=== PATIENT | female | born 1940 | race Caucasian/White ===

== ENCOUNTER 2022-04-28 13:17 | Observation (INO) | payer MEDICARE, OTHER, SELFPAY ==
[2022-04-28] VITALS (8 sets, daily range): BP systolic 160–179; BP diastolic 97–100; PULSE 80–117; RESP 16–27; TEMP 36–37; O2SAT 96–99; BMI 29.2; BMI 28.9
--- NOTE | 2022-04-28 13:36 | DI.CT.S_ITS ---
PROCEDURE: CT HEAD/BRAIN WO CON INDICATIONS: TIA symptoms TECHNIQUE: Noncontrast 4.5 mm thick angled axial sections acquired from the foramen magnum to the vertex, with coronal and sagittal reformats. For radiation dose reduction, the following was used: automated exposure control, adjustment of mA and/or kV according to patient size. COMPARISON: None. FINDINGS: Image quality: Excellent. CSF spaces: Basal cisterns are patent. No extra-axial fluid collections. The ventricles are symmetric in size and shape. Brain: No intracranial bleeds or masses. There is cerebral volume loss for age, with resultant ventricular and sulcal prominence. There are periventricular and deep white matter chronic small vessel ischemic changes. There is intracranial internal carotid artery atherosclerosis. Skull and face: Calvarium and visualized facial bones appear intact, without suspicious lesions. Sinuses: Visualized sinuses and mastoids are clear. IMPRESSION: No acute intracranial finding. Advanced global cerebral volume loss chronic microvascular ischemic changes. Dictated by: Richie Marie M.D. on 04/28/2022 at 13:52 Approved by: Richie Marie M.D. on 04/28/2022 at 13:52
[2022-04-28 13:45] LABS: Add Manual Diff / Slide Review NO; Basophils Absolute Auto 0 /uL (0-100); Basophils Percent Auto 1.2 % (0-2); Eosinophils Absolute Auto 100 /uL (0-450); Eosinophils Percent Auto 2.5 % (2-4); Hematocrit 41.3 % (36-46); Lymphocytes Absolute Auto 1600 /uL (1100-4500); Lymphocytes Percent Auto 39.3 % (25-40); Mean Corpuscular HGB Conc 33.8 % (30-36); Mean Corpuscular Hemoglobin 30.2 PG (26-34); Mean Corpuscular Volume 89.3 fL (80-100); Monocytes Absolute Auto 400 /uL (0-900); Monocytes Percent Auto 9.5 % (3-14); Neutrophils Absolute Auto 1900 /uL (1500-7000); Neutrophils Percent Auto 47.5 % (50-75); Platelet Count 180 X10^3/uL (150-400); Red Blood Cell Count 4.63 X10^6/uL (4.0-5.2); Red Cell Distribution Width 14.3 % (11.6-14.8)
[2022-04-28 13:47] LABS: Prothrombin Time 11.1 SECONDS (10.1-12.7)
[2022-04-28 13:50] LABS: PTT Partial Thromboplastin Tim 36 SECONDS (26.4-36.2)
[2022-04-28 13:51] LABS: Alanine Aminotransferase 18 IU/L (<35); Albumin 4.3 g/dL (3.5-5.0); Albumin Globulin Ratio 1.4 (1.0-2.8); Alkaline Phosphatase 71 U/L (38-126); Aspartate Aminotransferase 28 IU/L (14-36); BUN Creatinine Ratio 21.3 (6-22); Bilirubin Total 0.6 mg/dL (0.2-1.3); Blood Urea Nitrogen 17 mg/dL (7-17); Calcium 9.1 mg/dL (8.4-10.2); Carbon Dioxide 29 mmol/L (22-32); Chloride 104 mmol/L (98-107); Creatine Kinase 114 U/L (30-135); Estimated Glomerular Filt Rate > 60 mL/min (>60); Glucose 114 mg/dL (80-110); HEMOLYSIS 21 (0-50); Lipase 86 U/L (23-300); Potassium 3.8 mmol/L (3.4-5.1); Sodium 139 mmol/L (137-145); Total Protein 7.3 g/dL (6.3-8.2)
[2022-04-28 13:55] LABS: Monotest Negative (Negative)
[2022-04-28] MEDS: ASPIRIN 81 MG CHEW TAB 324 MG PO (14:01)
[2022-04-28 14:03] LABS: Troponin I < 0.012 ng/mL (0.01-0.034)
[2022-04-28] MEDS: SODIUM CHLORIDE 0.9% 1,000 ML 125 ML IV (14:03)
--- NOTE | 2022-04-28 14:05 | ED_ITS ---
HPI - Neuro Symptoms/Deficit General Chief Complaint: Neuro Symptoms/Deficit Stated Complaint: stroke sx, resolved fast negative, afib new Time Seen by Provider: 04/28/22 13:33 Source: patient and EMS Mode of arrival: EMS Limitations: no limitations History of Present Illness HPI Narrative: Patient is an 81-year-old female who arrives by EMS for evaluation of stroke- like symptoms. Patient was at her normal state health. [place] using [place] cart [place] stuff to the [place] when who is reported by the patient's that she had a period of time where she was unable to speak. She was able to stand but seemed very confused. thinks that it lasted less than 10 minutes. The patient does not specifically remember the episode. She has never had anything like this in the past. All of her symptoms have completely resolved. She denies headache, vision changes, sore throat, fevers, chest pain, palpitations, shortness of breath, cough, abdominal pain, nausea vomiting, urinary symptoms, numbness and tingling in her upper lower extremities, no joint pain, no rashes. Patient states that she has had 1 prior episode of atrial fibrillation with that was many years ago. She is not currently taking any medications. On Anticoagulants: No Related Data Home Medications Medication Instructions Recorded Confirmed No Known Home Medications 04/28/22 04/28/22 Allergies Allergy/AdvReac Type Severity Reaction Status Date / Time No Known Drug Allergies Allergy Verified 04/28/22 13:52 Review of Systems Review of Systems ROS Unobtainable: All systems reviewed & are unremarkable except as noted in HPI and below Hematologic/Lymphatic On Anticoagulants: No Patient History Medical History Atrial fibrillation Family History (Updated 04/28/22 @ 17:41 by Caterina Morales MD) Mother Cerebrovascular accident Sister Atrial fibrillation Social History household members: spouse Smoking Status: Never smoker alcohol intake: current Smoking Status: Never smoker alcohol intake frequency: a few times a week Substance Use Type: does not use Exam Initial Vital Signs Initial Vital Signs: Vital Signs Temperature 97.8 F 04/28/22 13:25 Pulse Rate 109 H 04/28/22 13:25 Respiratory Rate 18 04/28/22 13:25 Blood Pressure 160/100 H 06/24/22 13:25 Pulse Oximetry 99 04/28/22 13:25 Oxygen Delivery Method 04/28/22 13:25 Const General: cooperative, healthy appearing, comfortable, well developed and No ill appearing HENNC Head: normal to inspection and normocephalic Nose: external nose normal Face and sinus: normal facial exam Eyes Pupils: PERRL EOM: EOM intact bilaterally Chest Chest: normal inspection of the chest Resp Effort & Inspection: normal respiratory effort Auscultation: clear to auscultation bilaterally Cardio Rate: regular rate Rhythm: abnormal rhythm GI Inspection: normal to inspection Skin General: no rashes or lesions noted Neuro General: patient alert, patient awake, patient oriented x3 and moves all extremities Cranial Nerves: CN's II-XI intact bilaterally Cognition: normal cognition Speech: speech normal Sensory Exam: no sensory deficits noted Extrem General: normal to inspection and capillary refill normal Psych Appearance: grossly normal and well kempt Scores GCS Peabody coma scale eye opening: Spontaneous Rene coma scale verbal response: Orientated Rene coma scale motor response: Obey commands Peabody coma scale total score: 15 NIH Stroke Scale Level of Conciousness: Alert, keenly responsive Ask month/age: Answers both questions correctly. Open/close eyes, close hand: Performs both tasks correctly Best gaze horizontal: Normal Visual logan: No visual loss Facial palsy: Normal symetrical movement Left arm drift: No drift for full 10 sec Right arm drift: No drift for full 10 sec Left leg drift: No drift for full 5 sec Right leg drift: No drift for full 5 sec Limb ataxia: Absent Sensory on face/arms/legs: Normal, no sensory loss Best language: No aphasia, normal Dysarthria: Normal Extinction or inattention: No abnormality Total NIH Stroke scale score: 0 Course Orders Ordered: ED Orders 04/28/22 13:30 Complete Blood Count AUTO DIFF Stat Comprehensive Metabolic Panel Stat Lipase Stat Monotest Stat Partial Thromboplastin Time Stat Prothrombin Time INR Stat Troponin & CK Cardiac Panel Stat 04/28/22 13:36 CT head/brain wo con Stat 04/28/22 13:37 EKG-12 Lead Stat 04/28/22 14:07 Ictotest Urine Stat Urine Culture Stat Urine Microscopic Stat 04/28/22 14:44 COVID19 -Nasal RAPID/Pre-Proc Stat 04/28/22 15:00 EC echo doppler complete Stat MR stroke Stat US carotid doppler BI Stat 04/28/22 16:05 CBC Auto Diff [Complete Blood Count AUTO DIFF] DAILY CMP [Comprehensive Metabolic Panel] DAILY Lipid Panel DAILY 04/28/22 16:05 Consult to Discharge Planning Routine Consult to Occupational Therapy Evaluate & Treat Consult to Physical Therapy Evaluate & Treat Consult to Speech Therapy Evaluate & Treat A1C [Hemoglobin A1C% w Est Avg Glu] Routine Thyroid Stimulating Hormone Routine Education, smoking cessation ONGOING Education, smoking cessation ONGOING Acetaminophen (Acetaminophen 325 Mg Tablet) 650 mg PO Q6HR PRN PRN Reason: pain or fever Atorvastatin Calcium (Atorvastatin 20 Mg Tablet) 80 mg PO BEDTIME JENNIFER Ondansetron HCl (Ondansetron 4 Mg Odt) 4 mg PO Q8HR PRN PRN Reason: Nausea And Vomiting Discontinued Medications Aspirin (Aspirin 81 Mg Chew Tab) 324 mg PO NOW ONE Stop: 04/28/22 13:36 Last Admin: 04/28/22 14:01 Dose: 324 mg Documented By: AT Sodium Chloride (Normal Saline 0.9%) 1,000 mls @ 125 mls/hr IV CONT JENNIFER Last Infusion: 04/28/22 15:37 Dose: 0 mls/hr Documented By: Admin: 04/28/22 14:03 Dose: 125 mls/hr Documented By: AT Naloxone HCl (Naloxone 0.4 Mg/Ml Vial) 0.2 mg IV Q2MIN PRN PRN Reason: Opiate Reversal Vital Signs Vital signs: Vital Signs - 8 hr 04/28/22 13:25 04/28/22 13:36 04/28/22 14:00 Temperature 97.8 F Pulse Rate 109 H 102 H 117 H Respiratory Rate 18 22 Blood Pressure 160/100 H Pulse Oximetry 99 97 96 Oxygen Delivery Method Room Air Room Air Room Air Oxygen Flow Rate 04/28/22 14:30 04/28/22 15:00 04/28/22 14:10 Temperature 96.8 F L Pulse Rate 105 H 103 H 90 Respiratory Rate 27 H 21 18 Blood Pressure 179/97 H Pulse Oximetry 98 97 97 Oxygen Delivery Method Room Air Oxygen Flow Rate 0 MDM - Neuro Symptoms/Deficit Lab Data Attestation: I reviewed the patient's lab results. Result diagrams: 04/28/22 13:30 04/28/22 13:30 Labs: Lab Results 04/28/22 04/28/22 04/28/22 Range/Units 13:30 13:30 13:30 WBC 4.0 L (4.5-11.0) X10^3/uL RBC 4.63 (4.0-5.2) X10^6/uL Hgb 14.0 (12.0-16.0) g/dL Hct 41.3 (36-46) % MCV 89.3 (80-100) fL MCH 30.2 (26-34) PG MCHC 33.8 (30-36) % RDW 14.3 (11.6-14.8) % Plt Count 180 (150-400) X10^3/uL Neut % (Auto) 47.5 L (50-75) % Lymph % (Auto) 39.3 (25-40) % Baldwin % (Auto) 9.5 (3-14) % Eos % (Auto) 2.5 (2-4) % Baso % (Auto) 1.2 (0-2) % Neut # (Auto) 1900 (5660-3524) /uL Lymph # (Auto) 1600 (3841-6826) /uL Baldwin # (Auto) 400 (0-900) /uL Eos # (Auto) 100 (0-450) /uL Baso # (Auto) 0 (0-100) /uL PT 11.1 (10.1-12.7) SECONDS INR 1.0 (0.9-1.3) APTT 36 (26.4-36.2) SECONDS Sodium 139 (137-145) mmol/L Potassium 3.8 (3.4-5.1) mmol/L Chloride 104 (98-107) mmol/L Carbon Dioxide 29 (22-32) mmol/L BUN 17 (7-17) mg/dL Creatinine 0.80 (0.52-1.04) mg/dL Estimated GFR > 60 (>60) mL/min BUN/Creatinine Ratio 21.3 (6-22) Glucose 114 H (80-110) mg/dL Calcium 9.1 (8.4-10.2) mg/dL Total Bilirubin 0.6 (0.2-1.3) mg/dL AST 28 (14-36) IU/L ALT 18 (<35) IU/L Alkaline Phosphatase 71 (38-126) U/L Total Creatine Kinase 114 (30-135) U/L CK-MB (CK-2) 1.18 (<2.37) ng/mL CK-MB (CK-2) Rel Index 1.0 L (1.5-5.0) % Troponin I < 0.012 (0.01-0.034) ng/mL Total Protein 7.3 (6.3-8.2) g/dL Albumin 4.3 (3.5-5.0) g/dL Globulin 3.0 (1.7-4.1) g/dL Albumin/Globulin Ratio 1.4 (1.0-2.8) Lipase 86 (23-300) U/L Ur Bilirubin Confirm (Negative) Urine RBC (0-5/HPF) Urine WBC (0-5/HPF) Ur Squamous Epith Cells (0-5/HPF) Amorphous Sediment Urine Bacteria (None) Urine Mucus (Negative) Ur Culture Indicated? SARS-CoV-2 (PCR) (Negative) Monoscreen (Negative) 04/28/22 04/28/22 04/28/22 Range/Units 13:30 14:07 14:44 WBC (4.5-11.0) X10^3/uL RBC (4.0-5.2) X10^6/uL Hgb (12.0-16.0) g/dL Hct (36-46) % MCV (80-100) fL MCH (26-34) PG MCHC (30-36) % RDW (11.6-14.8) % Plt Count (150-400) X10^3/uL Neut % (Auto) (50-75) % Lymph % (Auto) (25-40) % Baldwin % (Auto) (3-14) % Eos % (Auto) (2-4) % Baso % (Auto) (0-2) % Neut # (Auto) (1577-7618) /uL Lymph # (Auto) (3921-3119) /uL Baldwin # (Auto) (0-900) /uL Eos # (Auto) (0-450) /uL Baso # (Auto) (0-100) /uL PT (10.1-12.7) SECONDS INR (0.9-1.3) APTT (26.4-36.2) SECONDS Sodium (137-145) mmol/L Potassium (3.4-5.1) mmol/L Chloride (98-107) mmol/L Carbon Dioxide (22-32) mmol/L BUN (7-17) mg/dL Creatinine (0.52-1.04) mg/dL Estimated GFR (>60) mL/min BUN/Creatinine Ratio (6-22) Glucose (80-110) mg/dL Calcium (8.4-10.2) mg/dL Total Bilirubin (0.2-1.3) mg/dL AST (14-36) IU/L ALT (<35) IU/L Alkaline Phosphatase (38-126) U/L Total Creatine Kinase (30-135) U/L CK-MB (CK-2) (<2.37) ng/mL CK-MB (CK-2) Rel Index (1.5-5.0) % Troponin I (0.01-0.034) ng/mL Total Protein (6.3-8.2) g/dL Albumin (3.5-5.0) g/dL Globulin (1.7-4.1) g/dL Albumin/Globulin Ratio (1.0-2.8) Lipase (23-300) U/L Ur Bilirubin Confirm Negative (Negative) Urine RBC 1-5/hpf (0-5/HPF) Urine WBC 10-30/hpf H (0-5/HPF) Ur Squamous Epith Cells 5-10 /hpf H (0-5/HPF) Amorphous Sediment 1+ Urine Bacteria Moderate (10-30) H (None) Urine Mucus 2+ H (Negative) Ur Culture Indicated? Specimen cultured SARS-CoV-2 (PCR) Negative (Negative) Monoscreen Negative (Negative) Urine Dip Bedside Urine Glucose Negative Bedside Urine Bilirubin + 1 Bedside Urine Ketone - Negative Urine Specific [place] 1.030 Bedside Urine Occult Blood + Bedside Urine pH 5.5 Bedside Urine Protein + 30 Bedside Urine Urobilinogen - Negative Bedside Urine Nitrite - Negative Bedside Urine Leukocytes - Negative Esterase Imaging Data CT scan - head: Radiologist's Impression: [address] [address] [address] Scan Report Signed Patient: Parul Aquino MR#: [id number] : 1940 Acct:[id number] Age/Sex: 81 / F Date of Service: 04/28/22 Loc: ED Accession Number: [id number] ?? Procedure: CT head/brain wo con Ordering Provider: Lance Cox D.O. PROCEDURE:? CT HEAD/BRAIN WO CON ? INDICATIONS:? TIA symptoms ? TECHNIQUE:? Noncontrast 4.5 mm thick angled axial sections acquired from the foramen magnum to the vertex, with coronal and sagittal reformats.? For radiation dose reduction, the following was used:? automated exposure control, adjustment of mA and/or kV according to patient size.? ? COMPARISON:? None. ? FINDINGS:? Image quality:? Excellent.? ? CSF spaces:? Basal cisterns are patent.? No extra-axial fluid collections.? The ventricles are symmetric in size and shape.? ? Brain:? No intracranial bleeds or masses.? There is cerebral volume loss for age, with resultant ventricular and sulcal prominence.? There are periventricular and deep white matter chronic small vessel ischemic changes.? There is intracranial internal carotid artery atherosclerosis.? ? Skull and face:? Calvarium and visualized facial bones appear intact, without suspicious lesions.? ? Sinuses:? Visualized sinuses and mastoids are clear.? ? IMPRESSION:? No acute intracranial finding.? Advanced global cerebral volume loss chronic microvascular ischemic changes. ? ? Dictated by: Richie Marie M.D. on 04/28/2022 at 13:52 ? ? Approved by: Richie Marie M.D. on 04/28/2022 at 13:5 ECG Data Attestation: I personally reviewed and interpreted this ECG as follows: Interpretation: Atrial fibrillation Ventricular rate 101 Normal axis Normal QRS No ST T wave changes MDM Narrative Medical decision making narrative: Patient is now asymptomatic. Her presenting symptoms are concerning for TIA. She is also in atrial fibrillation. She does not specifically feel this does not have chest pain or palpitations. She does not take any medications. She was given an aspirin here in the ER. Admission to the hospital required for further evaluation treatment of TIA. Discuss this with her. Discussed the case with hospitalist who will admit. Patient expressed understanding and agreement. Discharge Plan Departure Patient Disposition: Admitted as Observation Clinical Impression: Transient cerebral ischemia, A-fib Admit Date/Time: 04/28/22 15:08 Admit Provider: Caterina Morales
[2022-04-28 14:06] LABS: Creatine Kinase MB 1.18 ng/mL (<2.37)
[2022-04-28 14:45] LABS: Amorphous Sediment Urine 1+; Bacteria Urine Moderate (10-30); Ictotest Urine Negative (Negative); RBC Urine 1-5/HPF (0-5/HPF); Squamous Epithelial Cell Urine 5-10 /HPF (0-5/HPF); WBC Urine 10-30/HPF (0-5/HPF)
[2022-04-28 14:46] LABS: Culture Indicated Urine Specimen Cultured; Mucus Urine 2+ (Negative)
[2022-04-28 14:59] LABS: COVID19 -Nasal RAPID Negative (Negative)
--- NOTE | 2022-04-28 15:00 | DI.ECHO.S_ITS ---
[place] +---------+ [facility] +---------+ : : [address] : : : : [id number] : : : : Phone: [phone]+ Echocardiogram Report + + :Name: YRIS ALVAREZ Study Date: 04/29/2022 Height: 64 in : :[facility] ReadingLocation: Weight: 170 lb : : Gender: Female BSA: 1.8 m2 : :: 1940 Age: 81 yrs BP: 169/99 mmHg: :Reason For Study: TIA, ATRIAL FIBRILLATION : :Ordering Physician: ROSE, : :KENTON Performed By: Sho Arthur : :Referring: KENTON ROSE : + + Interpretation Summary The ejection fraction is estimated to be 55-60%. Diastolic function could not be accurately assessed due to atrial fibrillation. The left atrium is severely dilated. The right ventricle is normal in size and function. The right atrium is moderately dilated. There is mild mitral regurgitation. There is mild tricuspid regurgitation. PASP is approximately 35 to 40 mmHg. Procedure: A two-dimensional transthoracic echocardiogram with color flow and Doppler was performed. The study quality was technically adequate. There is no prior echocardiogram noted for this patient. The patient was in atrial fibrillation with heart rates between 81-118 bpm during the exam. Left Ventricle: The left ventricle is normal in size. Proximal septal thickening is noted. The ejection fraction is estimated to be 55-60%. Diastolic function could not be accurately assessed due to atrial fibrillation. Right Ventricle: The right ventricle is normal in size and function. Atria: The left atrium is severely dilated. The right atrium is moderately dilated. There is no Doppler evidence for an interatrial shunt. Mitral Valve: The mitral valve leaflets appear mildly thickened, but open well. There is mild mitral annular calcification. There is mild mitral regurgitation. Aortic Valve: The aortic valve is trileaflet. The aortic valve opens well. There is no aortic valve stenosis. No aortic regurgitation is present. Tricuspid Valve: The tricuspid valve is normal in structure and function. There is mild tricuspid regurgitation. PASP is approximately 35 to 40 mmHg. Pulmonic Valve: The pulmonic valve leaflets are thin and pliable; valve motion is normal. There is mild pulmonic regurgitation. Great Vessels: The aortic root is normal size. The dimensions of the ascending aorta are normal. The IVC is dilated (diameter is greater than 2.1 cm) yet it collapses greater than 50% with a sniff. This suggests a right atrial pressure of 8 mm Hg. Pericardium/ Pleura There is no pericardial effusion. There is no pleural effusion. MMode/2D Measurements & Calculations LVIDd: 4.2 cm LVOT diam: 2.0 cm LVIDs: 2.8 cm Ao root diam: 3.3 cm FS: 34.7 % asc Aorta Diam: 3.4 cm IVSd: 0.89 cm Ao Arch Diam (Prox Trans): 3.3 cm LVPWd: 0.89 cm LV paige. diameter/BSA (cm/m^2): 2.3 LV sys. diameter/BSA (cm/m^2): 1.5 LA A2 area: 33.7 cm2 RA long axis: 5.9 cm LA A4 area: 31.4 cm2 RA area: 21.7 cm2 LA length (vol): 7.3 cm RA vol: 67.7 ml LA vol: 122.8 ml RA : 37.1 ml/m2 LA vol index: 67.3 ml/m2 IVC diam: 2.2 cm RVD1 (basal): 3.2 cm RVD2 (mid): 2.2 cm TAPSE: 1.8 cm Doppler Measurements & Calculations Ao V2 max: 109.8 cm/sec LVOT Max Mitchell: 85.5 cm/sec Ao V2 mean: 81.2 cm/sec LV V1 max P.9 mmHg Ao max P.8 mmHg LV V1 VTI: 16.0 cm Ao mean P.9 mmHg CORDELL(I,D): 2.2 cm2 Ao V2 VTI: 22.0 cm CORDELL(V,D): 2.4 cm2 sev ratio: 0.73 CORDELL indexed to BSA (cm^2/m^2): 1.2 MV E max mitchell: 97.9 cm/sec TR max mitchell: 268.4 cm/sec MV A max mitchell: 2.1 cm/sec TR max P.8 mmHg MV E/A: 46.6 PA V2 max: 82.7 cm/sec Med Peak E' Mitchell: 7.1 cm/sec PA V2 mean: 59.3 cm/sec E/E' med: 13.7 PA mean P.6 mmHg Lat Peak E' Mitchell: 9.7 cm/sec PA pr(Accel): 32.8 mmHg E/E' lat: 10.1 E/e' average: 11.9 MV dec time: 0.17 sec SV(LVOT): 49.0 ml Reading Physician:12:01 PM
--- NOTE | 2022-04-28 15:00 | DI.MRI.S_ITS ---
PROCEDURE: MR STROKE Pre- and post-contrast brain MRI, non-contrast brain MR angiogram, pre- and postcontrast neck MR angiogram INDICATIONS: TIA, a fib, eval for CVA TECHNIQUE: Brain: Noncontrast axial T1 spin echo, axial T2 fast spin echo, sagittal and axial FLAIR, coronal T2 fast spin echo, axial gradient echo, axial diffusion and ADC through the brain. After the administration of contrast, axial 3D VIBE of the cranial vasculature and brain. Brain MRA: Non-contrast 3-D time of flight MR angiogram, with multiple jilfdmm-tvejebelj-lwepijgeyr (MIP) reformats performed. Neck MRA: Axial and sagittal TruFISP through the neck. Coronal dynamic MR angiogram during administration of contrast in the arterial and venous phases, with 3-dimenstional yydfgcl-ohltlrauy-vipjveehxj (MIP) reformats constructed from subtraction images. COMPARISON: None. FINDINGS: Small focus of restricted diffusion indicating recent ischemia in the left anterior insular cortex (series 20 image 63). No additional restricted diffusion. Mild global cerebral volume loss with passive expansion of the ventricles and extra-axial spaces. The major intracranial vascular flow-related signal voids are maintained. There is moderate to severe chronic microvascular ischemic change. Remote lacunar infarcts in the centrum semiovale a and hicks radiata. BRAIN MR ANGIOGRAM: Anterior circulation: Intracranial internal carotid arteries are normal in size and enhancement. The flow within the paired anterior cerebral arteries is normal and symmetric. The flow within the middle cerebral arteries is normal and symmetric. The anterior communicating artery is seen. No stenoses, occlusions, or aneurysms. Posterior circulation: The visualized portions of the vertebral arteries demonstrate normal caliber, and join to form a normal appearing basilar artery. The flow within the posterior cerebral arteries is normal and symmetric. No stenoses, occlusions, or aneurysms. NECK MR ANGIOGRAM: Carotids: Great vessels demonstrate a conventional anatomy as they arise from the aortic arch. The origins of the common carotid arteries appear patent. The calibers and courses of both common carotid arteries are normal. The bifurcation regions appear normal bilaterally. The internal carotid arteries demonstrate normal course and caliber. Posterior circulation: The origins of the vertebral arteries appear patent. More superior portions of both vertebral arteries demonstrate normal course and caliber, and join to form a normal appearing basilar artery. Miscellaneous: Subclavian arteries appear patent. Pre-contrast images through the neck show no soft tissue abnormalities. 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 BRAIN MR ANGIOGRAM: No hemodynamically significant stenosis or narrowing of the major intracranial arterial circulation. Distal cortical branches supplying the infarcted anterior left insular cortex demonstrate loss of normal flow-related signal consistent with slow flow or stasis. NECK MR ANGIOGRAM: No hemodynamically significant stenosis of the major extracranial arterial circulation. Dictated by: Richie Marie M.D. on 04/28/2022 at 16:12 Approved by: Richie Marie M.D. on 04/28/2022 at 16:16
--- NOTE | 2022-04-28 15:00 | DI.US.S_ITS ---
PROCEDURE: US CAROTID DOPPLER BI INDICATIONS: TIA TECHNIQUE: Color and pulse Doppler interrogation was performed of both carotid systems, with image documentation and velocity measurements. COMPARISON: [facility], MR, MR STROKE, 04/28/2022, 15:14. [facility], CT, CT HEAD/BRAIN WO CON, 04/28/2022, 13:40. FINDINGS: Stenosis calculations are based on SRU (Society of Radiologists in Ultrasound) criteria. The flow velocities and the arterial waveforms are normal within both carotid arterial systems. Minimal atherosclerotic plaque is seen on both sides. The estimated degree of internal carotid artery stenosis is less than 50%. Antegrade flow is confirmed within both vertebral arteries. IMPRESSION: No hemodynamically significant stenosis is seen. Dictated by: Pierce Reed M.D. on 04/28/2022 at 16:17 Approved by: Pierce Reed M.D. on 04/28/2022 at 16:18
--- NOTE | 2022-04-28 17:32 | P.HP_ITS ---
History of Present Illness History of Present Illness Date Patient Seen: 04/28/22 Chief complaint: stroke sx, resolved fast negative, afib new Narrative: 81-year-old female with remote history of suspected paroxysmal atrial fibrillation who otherwise has not followed with a physician regularly for greater than 20 years presented to the emergency department today with acute onset of stroke symptoms. Patient resides with her in [place], [place]. They keep their boat at the [employer] here in town. They were planning to take a 10 day trip around the [facility]. They took the [employer] over this morning from [place] and went to [place]. Patient and her were unloading their truck, going up and down the dock/ramp to their boat, and getting their supplies set up. noted that Parul grabbed the cart, would not let go, he and had a ?funny look ?on her face. He he tried to talk with her, but she was unable to speak. He tried to get her onto the boat, walked 50-75 feet, but she shook her head no getting on the boat. He noted she had some facial droop but cannot tell me what side it was on. He states she would not let go of the heart. She subsequently walked approximately 30 ft back to the trach and he states she fell. EMS was called and she was transported to the hospital. EMS advised the emergency department physician that her symptoms resolved approximately 10 minutes later. In the emergency department, patient was back to baseline. The patient tells me that she could understand her but could not get words out. She also reports that she sat down, rather than fell down. She states she is uncertain why she sat down. In the emergency department, patient was found to be in atrial fibrillation. She was mildly tachycardic in the 109-117 range. She denied any chest pain, chest tightness, palpitations, shortness of breath. Laboratories were performed which revealed a very mildly low white blood cell count at 4.0, glucose of 114 (nonfasting), contaminated UA, negative COVID test, negative mono screen. CT scan of the head revealed no acute intracranial findings. There was advanced global cerebral volume loss and chronic microvascular ischemic changes noted. Patient was admitted for further workup of presumed transient ischemic attack. Patient denies any recent fevers, chills, ill symptoms. No nausea, vomiting, abdominal pain. reports that the patient does not take good care of herself. He had gained 10-15 lb over the last decade or so despite her activity level and intake remaining the same. Patient denies any known medical history but admits she last saw physician over 20 years ago. Patient History Comment: Past medical history Remote episode of paroxysmal atrial fibrillation by report leading to syncope in 2000 Family & Social History Family History (Updated 04/28/22 @ 17:41 by Caterina Morales MD) Mother Cerebrovascular accident Sister Atrial fibrillation Social History: household members spouse Prior Living Arrangements House Safety & Behavioral: Feels Safe in Current Yes Environment Been Physically Hurt or No Threatened By a Person Tobacco & Substance use: Smoking Status Never smoker alcohol intake current alcohol intake frequency a few times a week Substance Use Type does not use Comment: Patient lives with her spouse of 45 years, no biologic children. Lifelong nonsmoker. She drinks 1/2 glass of wine daily. Recreationally enjoys boating. Meds Home Medications and Allergies Home Medications Medication Instructions Recorded Confirmed Type No Known Home Medications 04/28/22 04/28/22 History Allergies Allergy/AdvReac Type Severity Reaction Status Date / Time No Known Drug Allergies Allergy Verified 04/28/22 13:52 Review of Systems Review of Systems Narrative: All other systems were reviewed negative Exam Vital Signs (past 8 hours): - 04/28/22 13:25 04/28/22 13:36 04/28/22 14:00 Temperature 97.8 F Pulse Rate 109 H 102 H 117 H Respiratory Rate 18 22 Blood Pressure 160/100 H Pulse Oximetry 99 97 96 Oxygen Delivery Method Room Air Room Air Room Air 04/28/22 14:30 04/28/22 15:00 Temperature Pulse Rate 105 H 103 H Respiratory Rate 27 H 21 Blood Pressure Pulse Oximetry 98 97 Oxygen Delivery Method Room Air Oxygen Delivery Method Room Air Narrative Exam Narrative: GEN: Very pleasant elderly female, Alert and oriented x3, no acute distress HEENT: Normocephalic, face symmetric, pupils equal round reactive to light, extraocular movements intact, sclerae anicteric, conjunctiva clear, nares patent, oropharynx reveals an intact soft and hard palate with moist mucous membranes, dentition is fair NECK: Supple, no lymphadenopathy, thyroid without enlargement or nodularity, carotids no bruits CHEST: Respiratory excursions symmetric, clear to auscultation bilaterally CV: Mildly tachycardic, irregularly irregular, no murmurs, rubs, gallops, PMI could not be palpated ABD: Soft, protuberant, nontender, nondistended, bowel sounds present in all 4 quadrants, body habitus limits exam EXTR: Warm, well perfused, no clubbing/cyanosis/edema SKIN: Warm and dry, without rash NEURO: Alert and oriented x3, cranial nerves 2 through 12 are intact and symmetric bilaterally, motor strength 5/5 throughout, sensation intact throughout PSYCH: Mood and affect is within normal limits, judgment and insight are appropriatel Objective ECG Impression: AFib, rate 101, no acute ST or T-wave changes Imaging CT scan - head: Radiologist's impression: No acute intracranial findings, advanced global cerebral volume loss, chronic microvascular ischemic changes Labs Result Diagrams: 04/28/22 13:30 04/28/22 13:30 Labs: Laboratory Results - last 24 hr 04/28/22 04/28/22 04/28/22 13:30 13:30 13:30 WBC 4.0 L RBC 4.63 Hgb 14.0 Hct 41.3 MCV 89.3 MCH 30.2 MCHC 33.8 RDW 14.3 Plt Count 180 Neut % (Auto) 47.5 L Lymph % (Auto) 39.3 Green % (Auto) 9.5 Eos % (Auto) 2.5 Baso % (Auto) 1.2 Neut # (Auto) 1900 Lymph # (Auto) 1600 Green # (Auto) 400 Eos # (Auto) 100 Baso # (Auto) 0 PT 11.1 INR 1.0 APTT 36 Sodium 139 Potassium 3.8 Chloride 104 Carbon Dioxide 29 BUN 17 Creatinine 0.80 Estimated GFR > 60 BUN/Creatinine Ratio 21.3 Glucose 114 H Calcium 9.1 Total Bilirubin 0.6 AST 28 ALT 18 Alkaline Phosphatase 71 Total Creatine Kinase 114 CK-MB (CK-2) 1.18 CK-MB (CK-2) Rel Index 1.0 L Troponin I < 0.012 Total Protein 7.3 Albumin 4.3 Globulin 3.0 Albumin/Globulin Ratio 1.4 Lipase 86 Ur Bilirubin Confirm Urine RBC Urine WBC Ur Squamous Epith Cells Amorphous Sediment Urine Bacteria Urine Mucus Ur Culture Indicated? SARS-CoV-2 (PCR) Monoscreen 06/24/22 06/24/22 06/24/22 13:30 14:07 14:44 WBC RBC Hgb Hct MCV MCH MCHC RDW Plt Count Neut % (Auto) Lymph % (Auto) Green % (Auto) Eos % (Auto) Baso % (Auto) Neut # (Auto) Lymph # (Auto) Green # (Auto) Eos # (Auto) Baso # (Auto) PT INR APTT Sodium Potassium Chloride Carbon Dioxide BUN Creatinine Estimated GFR BUN/Creatinine Ratio Glucose Calcium Total Bilirubin AST ALT Alkaline Phosphatase Total Creatine Kinase CK-MB (CK-2) CK-MB (CK-2) Rel Index Troponin I Total Protein Albumin Globulin Albumin/Globulin Ratio Lipase Ur Bilirubin Confirm Negative Urine RBC 1-5/hpf Urine WBC 10-30/hpf H Ur Squamous Epith Cells 5-10 /hpf H Amorphous Sediment 1+ Urine Bacteria Moderate (10-30) H Urine Mucus 2+ H Ur Culture Indicated? Specimen cultured SARS-CoV-2 (PCR) Negative Monoscreen Negative Assessment & Plan Assessment & Plan narrative: 1. Transient ischemic attack Patient presents with acute onset of facial droop and expressive aphasia. As noted, she presented to the emergency department for evaluation, was found to be in AFib with mild RVR, and had a negative head CT. Patient has some remote history of paroxysmal atrial fibrillation but did not seek any regular medical care there after. She is not on an aspirin or other medications at baseline. Patient will be admitted for further workup, inclusive of an MRI of the brain, carotid ultrasound, echocardiogram, PT/OT evaluations, and telemetry. NIH scores will be done every shift. She will have a swallow screen performed as well. 2. Atrial fibrillation with mild rapid ventricular response Continue telemetry. Presently she is asymptomatic and unaware of her rhythm. Will defer the rate medication for now while awaiting MRI to rule out stroke. If there is evidence of stroke, will defer aggressive rate lowering as we will allow for permissive hypertension to promote cerebral perfusion pressure. However, goal would be to work towards adequate rate control. It is unknown if this is paroxysmal or persistent AFib as she is asymptomatic. Discussed the need for echocardiogram, thyroid testing, lipid panel, and further evaluation to assess her CHADS2 Vasc score. Advised that she will likely require anticoagulation discharge. 3. Elevated blood pressure As above, await MRI of the brain to evaluate whether there is evidence of acute stroke. If a stroke is present will allow for permissive hypertension as noted. 4. Mildly elevated nonfasting glucose Patient has no known history of diabetes. No family history. Will check a hemoglobin A1c to further assess. Risk factor includes being mildly overweight. 5. Overweight BMI is 28.9. Would benefit from weight reduction. 6. COVID status COVID test was negative in the emergency department. Code status Full Prophylaxis Low Radha score Disposition Admit under observation status for further workup. Time Spent With Patient Critical Care time: I spent a total of [] minutes of critical care time on this patient's care today; this time is exclusive of procedural time. Quality VTE Deep Vein Thrombosis/Pulmonary Embolism Present on Admission: No
--- NOTE | 2022-04-28 17:46 | ST.IPSCREEN ---
SUPERVISOR WATERPROOFING entered the room at 17:20 to evaluate the pt. Per pt, she had a 15 minute period where she was not speaking, but reports she is back to normal since coming to the hospital. Speech and language rated WNL at this time; pt answered questions appropriately and engaged in conversation with this SUPERVISOR WATERPROOFING. Pt was observed to eat dinner with no overt s/sx of aspiration at this time. OME performed indicated no facial weakness or range of motion difficulties. No ST needed at this time as the pt is back to baseline and not demonstrating a need for intervention in speech/language/swallowing at this time. No further questions from pt or her spouse prior to SUPERVISOR WATERPROOFING exiting the room at 17:45.
--- NOTE | 2022-04-28 18:14 | PC.NURSE ---
Patients NIH scale a o. She is able to lift both of her arms and legs up without drift. She has no speech issues and smile is symmetrical. Passed her swallow eval and tolerated a clear liquid diet. Skin is clear, except for a few scattered scratches to both shins. She denies pain and is comfortable.
[2022-04-28] MEDS: ATORVASTATIN 20 MG TABLET 80 MG PO (20:03)
[2022-04-29 04:00] VITALS: BP 173/105; PULSE 92; RESP 16; TEMP 36.7; O2SAT 97
[2022-04-29 06:58] LABS: Add Manual Diff / Slide Review NO; Basophils Absolute Auto 100 /uL (0-100); Basophils Percent Auto 1.7 % (0-2); Eosinophils Absolute Auto 100 /uL (0-450); Eosinophils Percent Auto 3.4 % (2-4); Hematocrit 42.9 % (36-46); Hemoglobin 14.4 g/dL (12.0-16.0); Lymphocytes Absolute Auto 1200 /uL (1100-4500); Lymphocytes Percent Auto 37.4 % (25-40); Mean Corpuscular HGB Conc 33.5 % (30-36); Mean Corpuscular Volume 89.6 fL (80-100); Monocytes Absolute Auto 300 /uL (0-900); Monocytes Percent Auto 10.4 % (3-14); Neutrophils Absolute Auto 1500 /uL (1500-7000); Neutrophils Percent Auto 47.1 % (50-75); Platelet Count 168 X10^3/uL (150-400); Red Blood Cell Count 4.79 X10^6/uL (4.0-5.2); Red Cell Distribution Width 14.5 % (11.6-14.8); White Blood Cell Count 3.2 X10^3/uL (4.5-11.0)
[2022-04-29 07:06] LABS: Alanine Aminotransferase 17 IU/L (<35); Albumin 4.1 g/dL (3.5-5.0); Albumin Globulin Ratio 1.4 (1.0-2.8); Alkaline Phosphatase 70 U/L (38-126); Aspartate Aminotransferase 25 IU/L (14-36); BUN Creatinine Ratio 14.5 (6-22); Bilirubin Total 0.8 mg/dL (0.2-1.3); Blood Urea Nitrogen 11 mg/dL (7-17); Carbon Dioxide 32 mmol/L (22-32); Chloride 104 mmol/L (98-107); Cholesterol 256 mg/dL (140-199); Estimated Glomerular Filt Rate > 60 mL/min (>60); Globulin 2.9 g/dL (1.7-4.1); Glucose 103 mg/dL (80-110); HDL Cholesterol 79 mg/dL (40-60); HEMOLYSIS < 15 (0-50); LDL Cholesterol Calculated 155 mg/dL (<100); Potassium 4.4 mmol/L (3.4-5.1); Sodium 139 mmol/L (137-145); Triglycerides 109 mg/dL (35-150)
[2022-04-29 07:13] LABS: Hemoglobin A1C% w Est Avg Glu 5.6 % (4.0-6.0)
[2022-04-29 07:40] LABS: Thyroid Stimulating Hormone 2.97 uIU/mL (0.47-4.68)
[2022-04-29 08:00] VITALS: BP 181/99; BP 184/114; PULSE 74; RESP 17; TEMP 37.2; O2SAT 97
--- NOTE | 2022-04-29 09:00 | PT.IIE ---
Medical History (Last Reviewed 04/28/22 @ 19:29 by Lance Cox DO) Atrial fibrillation Physical Therapy Inpatient Evaluation/Re-Eval M1 PT/OT-IP Prior Functional Status Start: 04/29/22 11:24 Freq: NEEDED Status: Active Protocol: Document 04/29/22 09:00 AB (Rec: 04/29/22 11:35 AB [id number]) Medical Review Prior Functional Status Communication able to make needs known Mobility and Gait pt stated that she is independent with all mobilities and ambulation withotu AD Activities of Daily Living and IADL's per OT note: completely independent for all ADL and IADl needs. Social History Household Members spouse Living Arrangements House Number of Floors (Floors) Two Floors Number of Stairs To Enter/Railing? 2 steps to enter 14 stepsl L rail descending to bedroom level Home Environment High Toilet,Walk in Shower, Built-In Shower Seat,Ramp Home Equipment Hand Held Shower,Grab Bars In Shower Additional Social History Comment pt stated that she lives in [place]. 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 M2 PT-IP Current Condition Start: 04/29/22 11:24 Freq: NEEDED Status: Active Protocol: Document 04/29/22 09:00 AB (Rec: 04/29/22 11:35 AB [email or web address]) Physical Therapy Current Condition Current Condition Evaluation Date 04/29/22 Treatment Diagnosis L CVA; difficulty in walking Onset Date 04/28/22 M3 PT-IP Subjective Start: 04/29/22 11:24 Freq: NEEDED Status: Active Protocol: Document 04/29/22 09:00 AB (Rec: 04/29/22 11:35 AB [email or web address]) Subjective Physical Therapy Visit Type Type Initial Evaluation Visit Start Time 09:00 Visit Stop Time 09:25 Total Visit Minutes 25 Number of OPERATOR ASSISTANT I CEMENTING Visits 0 Physical Therapy Visit Comments Patient Comments agreeable to do PT Therapy Pain Assessment Pain Present Pain Present Denied Pain M4 PT-IP Mobility and Gait Start: 04/29/22 11:24 Freq: NEEDED Status: Active Protocol: Document 04/29/22 09:00 AB (Rec: 04/29/22 11:35 AB [id number]) PT-Bed Mobility Assessment Supine to Sit Supine to Sit Independent Sit to Supine Sit to Supine Independent PT-Transfer Assessment Sit to and From Stand Sit to and from Stand Independent Equipment Transfer Assistive Device None,Gait Belt Orthotic/Prosthetic Devices or Brace: No Transfers Transfer Destination Chair Transfer Technique ambulated Transfer Ability Level of Assist Independent,1 Person Assistance Comments Mobility Comments BP: 163/73 . complete supine to sit mod I. completed sit to stand mod I and ambulated in room without AD mod I and sat on chair. agreed to do stairs . completed sit to stand from chair I and ambulated in the hallway without AD ~ 125 ft SBA for safety. presents with antalgic gait with increase wt shifting to the L but no LOB. (+) R scoliosis. completed up/down steps using R rail ascending SBA and repeated x2. completed again but without rails SBA. pt ambulated back to her room without AD SBA. agreed to sit on the chair. call ight and table placed within reach. Gait Assessment Gait Gait Assistance Required: Standby Assistance Distance (Feet) 125 Able to Maintain Weight Bearing Status Yes During Gait Assistive Devices Assistive Device None,Gait Belt Orthotic/Prosthetic Devices or Brace: No Gait Deviations General Gait Pattern Antalgic Factors Limiting Gait Function Factors Limiting Gait Function Decreased Activity Tolerance, Decreased Strength Stair Climbing Assessment Evaluation Level of Assist On Stairs Standby Assistance Devices Stair Climbing Assistive Devices None,Right Railing Technique/Endurance Stair Climbing Direction Ascend and Descend Stair Climbing Technique Step Over Step Number of Steps Climbed 3 Query Text: Stair Climbing Set # Repetitions (reps) 3 PT-Balance Assessment Sitting Balance and Reactions Static Sitting Balance Ability Normal Dynamic Sitting Balance Ability Normal Standing Balance and Reactions Static Standing Balance Ability Good Dynamic Standing Balance Ability Good Device Used without AD M5 PT-IP Objective Assessments Start: 04/29/22 11:24 Freq: NEEDED Status: Active Protocol: Document 04/29/22 09:00 AB (Rec: 04/29/22 11:35 AB [id number]) Orientation Orientation/Cognition Level of Alertness Alert Orientation Name,Place,Situation Language Function Ability No Deficits Noted Safety Awareness Understands Safety Issues Memory Description No Deficits Noted Strength Lower Extremity Strength Assessment Within Functional Limits Coordination Assessment Gross Coordination Gross Coordination WNL Sensation Assessment Sensation Gross Sensation WNL Muscle Tone Muscle Tone WNL Yes M6 PT-IP Treatment Start: 04/29/22 11:24 Freq: NEEDED Status: Active Protocol: Document 04/29/22 09:00 AB (Rec: 04/29/22 11:35 [id number]) Physical Therapy Treatment Education Education Provided Safety M7 PT-IP Assessment and Plan Start: 04/29/22 11:24 Freq: NEEDED Status: Active Protocol: Document 04/29/22 09:00 (Rec: 04/29/22 11:35 [id number]) PT Summary Assessment and Plan Potential Rehabilitation Potential Good Status of Condition at Evaluation Stable Summary Assessment Summary PT eval completed. Pt is mod I with mobility in room and SBA for ambulation outside her room for safety without AD. able to stairs SBA. pt stated that she feels that she is back to her normal self. Pt will have her spouse to assist her at home. No further PT intervention needed at this time. Pt agreed. Frequency of Treatment Frequency Of Treatment Discharge Recommendations To Nursing Amount of Assist Needed Standby Assistance Discharge Recommendations PT Discharge Recommendations Home Transportation Needs at Discharge Private Vehicle
--- NOTE | 2022-04-29 10:42 | OT.IP.EVAL ---
Past Medical History (Last Reviewed 04/28/22 @ 19:29 by Lance Cox DO) Atrial fibrillation Occupational Therapy Inpatient Evaluation/Re-Eval M1 PT/OT-IP Prior Functional Status Start: 04/29/22 10:49 Freq: NEEDED Status: Active Protocol: Document 04/29/22 10:50 [facility] (Rec: 04/29/22 11:11 [facility] [id number]) Medical Review Prior Functional Status Communication independent Mobility and Gait independent with no devices Activities of Daily Living and IADL's completely independent for all ADL and IADl needs. Prior Functional Level (Other details) Currently pt and her are here on there boat from [employer] [employer]. Social History Household Members spouse Number of Stairs To Enter/Railing? One step over to the cockpit and ramp to get to the living quarters per pt. Home Environment Walk in Shower,Built-In Shower Seat,Ramp Home Equipment Grab Bars In Shower M2 OT-IP Current Condition Start: 04/29/22 10:49 Freq: Status: Active Protocol: Document 04/29/22 10:50 [facility] (Rec: 04/29/22 11:11 [facility] [id number]) Occupational Therapy Current Condition Current Condition Evaluation Date 04/29/22 Treatment Diagnosis Small left anterior insular cortex infarct Diagnosis Onset Date 04/28/22 M3 OT- IP Subjective and Pain Start: 04/29/22 10:49 Freq: Status: Active Protocol: Document 04/29/22 10:50 [facility] (Rec: 04/29/22 11:11 [facility] [id number]) OT- Subjective Occupational Therapy Visit Type Type Initial Evaluation Visit Start Time 10:25 Visit Stop Time 10:42 Total Visit Minutes 17 Occupational Therapy Visit Comments Patient Comments Pt agreed to get up for OT eval. Patient/Caregiver Goals To go home. OT Pain Assessment Pain When Pain Assessed At Rest Pain Present Pain Present Denied Pain M4 OT- IP ADL's Start: 04/29/22 10:49 Freq: Status: Active Protocol: Document 04/29/22 10:50 [facility] (Rec: 04/29/22 11:11 [facility] [id number]) OT [id number]-[id number]-Cuxmprl General Evaluation Self-Feeding Ability Independent OT ADL-Grooming General Evaluation Grooming Ability Independent OT ADL-Oral Care General Eval Oral Care Ability Independent OT ADL-Dressing General Eval Lower Body Dressing Ability Independent Comments OT Dressing Comments Independent whit seated. OT ADL-Toileting Comments OT Toileting Comments Pt states has been independent to use the toilet on her own . OT ADL-Bathing Comments OT Bathing Comments Not performed. M5 OT- IP IADL's Start: 04/29/22 10:49 Freq: Status: Active Protocol: Document 04/29/22 10:50 [facility] (Rec: 04/29/22 11:11 [facility] [id number]) OT-Instrumental Activities of Daily Living Home Safety Awareness Awareness of Need for Assistance at Home Good Awareness Ability to Problem Solve Emergency Able to Problem Solve Situations Medication Management Medication Management Comments Pt does not take any medications. Money Management Money Management No Deficits Identified Meal Preparation Meal Preparation No Deficits Identified Flight Tower Dispatcher Flight Tower Dispatcher No Deficits Identified Driving Driving Comments Pt states that her insists on driving and at this time would not drive. M6 OT- IP Functional Cognition Start: 04/29/22 10:49 Freq: Status: Active Protocol: Document 04/29/22 10:50 [facility] (Rec: 04/29/22 11:11 [facility] [id number]) Cognitive Factors Limiting Selfcare Function Cognitive Ability Level of Alertness Alert Patient Orientation Name,Age,Birthday,Month,Date, Year,Day of Week,Place, Situation Attention Span Ability Capable of Focused Attention, Capable of Sustained Attention Ability to Follow Commands Able to Follow Multi-Step Commands Problem Solving Ability No deficits Noted Executive Function Ability Unable to Filter Distractions Cognitive Comments Cognitive Assessment Comments Pt scored 116 seconds for [place] Making Part B which is 50% for her age group and implies mild/mod impairments for task switching, speed of processing, executive functioning, mental flexibility and visual attention. Pt intact for home safety questions. OT- Vision and Hearing OT- Hearing Assessment OT- Hearing Assessment WFL OT- Vision Assessment Visual Acuity Glasses For Reading Visual Attentiveness WFL Occular Pursuits WFL Visual Convergence WFL Visual Adkins WFL Vision Assessment Comments Pt complaining of slight blurred vision. M7 OT- IP Mobility and Balance Start: 04/29/22 10:49 Freq: Status: Active Protocol: Document 04/29/22 10:50 [facility] (Rec: 04/29/22 11:11 [facility] [id number]) OT-Transfer Assessment Sit to and From Stand Sit to and from Stand Independent Transfers Transfer Ability Independent Technique Transfer Destination Chair Transfer Technique Stand Step Pivot Devices Transfer Assistive Devices None Comments Mobility Comments Pt independently able to move in the room on her own. OT- Balance Assessment Sitting Balance and Reactions Static Sitting Balance Ability Normal Dynamic Sitting Balance Ability Normal Standing Balance and Reactions Static Standing Balance Ability Normal Dynamic Standing Balance Ability Good M8 OT- IP Objective Assessments Start: 04/29/22 10:49 Freq: Status: Active Protocol: Document 04/29/22 10:50 [facility] (Rec: 04/29/22 11:11 [facility] [id number]) OT Gross Range of Motion Upper Extremity Range of Motion Assessment Within Functional Limits OT Strength Upper Extremity Strength Assessment Within Functional Limits OT- Coordination Assessment Upper Extremity Finger to Nose Test Within Functional Limits OT-Muscle Tone Assessment Muscle Tone WNL Yes OT Sensation Assessment Comments Summary Comments Intact for light touch M9 OT- IP Assessment and Plan Start: 04/29/22 10:49 Freq: Status: Active Protocol: Document 04/29/22 10:50 [facility] (Rec: 04/29/22 11:11 [facility] [id number]) OT Summary Assessment and Plan Potential Rehabilitation Potential Excellent Analytic Complexity at Evaluation Low Summary OT Impairments Bathing Progress Towards Goals Progressing Toward Goals Assessment Summary Pt low complexity and here due to small left anterior insular cortex infarct and just complaining of slight blurred vision however able to read the clock. Pt doing well and independent in the room for her ADL and mobility needs . Pt scored 116 seconds on the [place] Making part B which implies mild/mod impairments for task switching, speed of processing, executive functioning, mental flexibility and visual attention. Pt looking to go home with her when medically cleared. Goals Bathing Goal Independent Days to Meet Goals 1 Frequency of Treatment Frequency Of Treatment Once a Day Treatment Plan OT Treatment Plan Patient/Family Education, Discharge Planning Other Treatment Recommendations and Next reassess vision and showering Treatment Focus Discharge Recommendations Transportation Needs at Discharge Private Vehicle
[2022-04-29 12:00] VITALS: BP 151/96; PULSE 99; RESP 18; TEMP 36.4; O2SAT 97
--- NOTE | 2022-04-29 12:46 | CM.DANOTE ---
Initials Discharge Planning Note: Met with this A/O very pleasant 81 year old patient in her room. Explained role. Patient admitted yesterday pm to care of hospitalist team. Patient and her spouse live in [facility] and came to [place] to take their boat out in the [facility]. She had s/s TIA/CVA and was taken to . She has be dx'd with L cortex infarct, likely cardioembolic. She was in Afib. She has not seen a PCP in 20 years and is on no medications per records and patient. Patient has returned to baseline and desires to return to previous life. P: Discharge when medically stable to care of spouse. Lela Vega RN/DCP Discharge Planning/Care Management CM Discharge Assessment Start: 04/29/22 12:44 Freq: Status: Active Protocol: Document 04/29/22 12:45 (Rec: 04/29/22 12:46 [id number]) Discharge Planning Assessment Assigned Territory Service Representative Lela Vega RN/DCP Advance Directives? Yes Advance Directives on File No History Provided By Patient,Medical Record Has Patient been admitted in last 30 No days? Prior Living Arrangements House Household Members spouse Type of transporation used prior to Drives own vehicle admit Independent with ADL's Yes Is patient alert and oriented? Yes Caregiver for Another No Barriers to Discharge No Discharge Plan Home Referrals Initiated None needed Whiteboard Updated in Patient Room with Yes name and ext. # of Territory Service Representative Review Status In Process Next Review Type Continued Stay Review
--- NOTE | 2022-04-29 14:50 | P.DS_ITS ---
History of Present Illness History of Present Illness Date Patient Seen: 04/29/22 Chief complaint: stroke sx, resolved fast negative, afib new Narrative: 81-year-old female with remote history of suspected paroxysmal atrial fibrillation who otherwise has not followed with a physician regularly for greater than 20 years presented to the emergency department today with acute onset of stroke symptoms. Patient resides with her in [place], [place]. They keep their boat at the [employer] here in town. They were planning to take a 10 day trip around the [facility]. They took the [place] over this morning from [place] and went to the [place]. Patient and her were unloading their truck, going up and down the dock/ramp to their boat, and getting their supplies set up. noted that Parul grabbed the cart, would not let go, he and had a ?funny look ?on her face. He he tried to talk with her, but she was unable to speak. He tried to get her onto the boat, walked 50-75 feet, but she shook her head no getting on the boat. He noted she had some facial droop but cannot tell me what side it was on. He states she would not let go of the heart. She subsequently walked approximately 30 ft back to the trach and he states she fell. EMS was called and she was transported to the hospital. EMS advised the emergency department physician that her symptoms resolved approximately 10 minutes later. In the emergency department, patient was back to baseline. The patient tells me that she could understand her but could not get words out. She also reports that she sat down, rather than fell down. She states she is uncertain why she sat down. In the emergency department, patient was found to be in atrial fibrillation. She was mildly tachycardic in the 109-117 range. She denied any chest pain, chest tightness, palpitations, shortness of breath. Laboratories were performed which revealed a very mildly low white blood cell count at 4.0, glucose of 114 (nonfasting), contaminated UA, negative COVID test, negative mono screen. CT scan of the head revealed no acute intracranial findings. There was advanced global cerebral volume loss and chronic microvascular ischemic changes noted. Patient was admitted for further workup of presumed transient ischemic attack. MRI revealed evidence of a small left anterior insular cortex infarct. She was admitted for stroke workup. Discharge Providers Provider Date of admission: 04/28/22 15:08 Discharge Date: 04/29/22 Consults: 04/28/22 16:05 Consult to Discharge Planning Routine Comment: Consult to Occupational Therapy Evaluate & Treat Comment: Physician Instructions: Evaluate and treat Consult to Physical Therapy Evaluate & Treat Comment: Physician Instructions: Evaluate and Treat Consult to Speech Therapy Evaluate & Treat Comment: Physician Instructions: Evaluate and treat Discharge provider: Caterina Morales MD Summary Hospital Course Discharge Diagnosis: 1. 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 Atrial fibrillation, paroxysmal versus permanent 3. Hyperlipidemia 4. Elevated blood pressures Hospital Course: Patient is an 81-year-old female who had acute onset of stroke symptoms inclusive of facial droop and expressive aphasia on the day of admission. By the time she got to the emergency department, her neurologic symptoms have fully resolved. Initial head CT negative. She was subsequently admitted for TIA e valuation. Carotid ultrasound was done and was negative for hemodynamically significant stenosis. Brain MRI resulted showing a small acute infarct of the left anterior insular cortex. Hemoglobin A1c revealed no evidence of diabetes. Lipid panel was done which revealed an LDL of 155, HDL 79, total cholesterol of 256. TSH was within normal limits. Echocardiogram revealed an LVEF of 55-60%, diastolic function could not be assessed. Severely dilated left atrium. Normal size and function of the right ventricle, moderately dilated right atrium, mild mitral regurgitation, mild tricuspid regurgitation, PA systolic pressure 35-40 mmHg. Patient was evaluated by PT and OT and was cleared for discharge. Speech therapy performed a swallow evaluation and she had no identified deficits. Blood pressures remained elevated in the 160s to 180s over the course of her hospitalization. However, given the acuity of her symptoms these pressures were not treated and she was allowed to have permissive hypertension. She was quite adamant that she does not have a history of hypertension. However she had not followed with a physician for many years. Patient was placed on a high intensity statin with atorvastatin 80 mg daily. She is sent home with a prescription of Eliquis 5 mg b.i.d. which she is instructed to start on April 30 which will be 48 hours after her infarct. She is encouraged to monitor blood pressures and follow up with her PCP next week. Patient is discharged in stable condition. Status at Discharge Cognitive/behavioral status at discharge: at baseline, oriented Exam Vital Signs (past 8 hours): - 04/29/22 08:00 04/29/22 08:00 04/29/22 12:00 Temperature 98.9 F 97.5 F L Pulse Rate 74 99 H Respiratory Rate 17 18 Blood Pressure 184/114 H 181/99 H 151/96 H Pulse Oximetry 97 97 Oxygen Flow Rate 0 0 Oxygen Delivery Method Room Air Oxygen Flow Rate 0 Narrative Exam Narrative: GEN:? Very pleasant elderly female, Alert and oriented x3, no acute distress HEENT:? Normocephalic, face symmetric CHEST:? Respiratory excursions symmetric, clear to auscultation bilaterally CV:? Irregularly irregular, no murmurs, rubs, gallops, PMI could not be palpated ABD:? Soft, protuberant, nontender, nondistended, bowel sounds present in all 4 quadrants, body habitus limits exam EXTR:? Warm, well perfused, no clubbing/cyanosis/edema SKIN:? Warm and dry, without rash NEURO:? Alert and oriented x3, cranial nerves 2 through 12 are intact and symmet dustin bilaterally, motor strength 5/5 throughout, sensation intact throughout PSYCH:? Mood and affect is within normal limits, judgment and insight are appropriatel Objective Labs Result Diagrams: 04/29/22 06:15 04/29/22 06:15 Labs: Laboratory Results - last 24 hr 04/28/22 04/29/22 04/29/22 14:44 06:15 06:15 WBC 3.2 L RBC 4.79 Hgb 14.4 Hct 42.9 MCV 89.6 MCH 30.0 MCHC 33.5 RDW 14.5 Plt Count 168 Neut % (Auto) 47.1 L Lymph % (Auto) 37.4 Roberts % (Auto) 10.4 Eos % (Auto) 3.4 Baso % (Auto) 1.7 Neut # (Auto) 1500 Lymph # (Auto) 1200 Roberts # (Auto) 300 Eos # (Auto) 100 Baso # (Auto) 100 Sodium 139 Potassium 4.4 Chloride 104 Carbon Dioxide 32 BUN 11 Creatinine 0.76 Estimated GFR > 60 BUN/Creatinine Ratio 14.5 Glucose 103 Hemoglobin A1c Calcium 9.0 Total Bilirubin 0.8 AST 25 ALT 17 Alkaline Phosphatase 70 Total Protein 7.0 Albumin 4.1 Globulin 2.9 Albumin/Globulin Ratio 1.4 Triglycerides 109 Cholesterol 256 H LDL Cholesterol, Calc 155 H HDL Cholesterol 79 H TSH SARS-CoV-2 (PCR) Negative 04/29/22 04/29/22 06:15 06:15 WBC RBC Hgb Hct MCV MCH MCHC RDW Plt Count Neut % (Auto) Lymph % (Auto) Roberts % (Auto) Eos % (Auto) Baso % (Auto) Neut # (Auto) Lymph # (Auto) Roberts # (Auto) Eos # (Auto) Baso # (Auto) Sodium Potassium Chloride Carbon Dioxide BUN Creatinine Estimated GFR BUN/Creatinine Ratio Glucose Hemoglobin A1c 5.6 Calcium Total Bilirubin AST ALT Alkaline Phosphatase Total Protein Albumin Globulin Albumin/Globulin Ratio Triglycerides Cholesterol LDL Cholesterol, Calc HDL Cholesterol TSH 2.97 SARS-CoV-2 (PCR) [facility] Medical History Atrial fibrillation Family History (Updated 04/28/22 @ 17:41 by Caterina Morales MD) Mother Cerebrovascular accident Sister Atrial fibrillation Social History household members: spouse Smoking Status: Never smoker alcohol intake: current Discharge Plan Discharge Plan Patient Disposition: Home Provider Discharge Comment: Monitor your blood pressure twice daily and write it down. Bring the log into your next appointment with your provider. Start Eliquis tomorrow for stroke prevention d/t a fib. Continue taking atorvastatin (lipitor) to control your cholesterol. Your goal LDL is 70 or less (your LDL is 155). Return to the ED for any recurrent neurologic symptoms. Monitor your pulse (heart rate). Normal resting heart rate is 60-100. If you have persistent pulse above 110, please contact your provider. As discussed, you may need metoprolol for both rate control and blood pressure control and this should be addressed with your PCP. Discharge orders & Medications Prescriptions: New atorvastatin [Lipitor] 20 mg Tablet 80 mg PO BEDTIME Qty: 30 0RF Eliquis 5 mg tablet 5 mg PO BID Qty: 60 0RF Diet/Activity/Treatments Diet: Regular Activity: As tolerated Oxygen: N/A Discharge Data Attending Provider: Caterina Morales Quality VTE Deep Vein Thrombosis/Pulmonary Embolism Present on Admission: No
== END 2022-04-29 14:00 | disposition home or self-care (01) ==
LOC: ED 14:47 → AC 15:09
PROVIDERS: Admitting Provider Family Medicine; Emergency Provider Emergency Medicine; Visit Provider Family Medicine
DX: I63.9 Cerebral infarction, unspecified (principal); Z20.822 Contact with and (suspected) exposure to COVID-19; I48.91 Unspecified atrial fibrillation; R29.700 NIHSS score 0; E66.3 Overweight; Z68.28 Body mass index [BMI] 28.0-28.9, adult; R03.0 Elevated blood-pressure reading, without diagnosis of hypertension; E78.5 Hyperlipidemia, unspecified
CPT/HCPCS: 36415; 70450; 70548; 70553; 80053; 80061; 81003; 81015; 82550; 82553; 83036; 83690; 84443; 84484; 85025; 85610; 85730; 86318; 87086; 87635; 93005; 93306; 93880; 96360; 96361; 97161; 97165; 99285; C9803; G0378